=== PATIENT | female | born 1980 | race Two or more races ===

== ENCOUNTER 2025-08-10 13:53 | Emergency (ER) | payer MEDICAID, OTHER ==
[~2025-08-10] VITALS: Ht 175.3 cm; Wt 89.0 kg
[2025-08-10] MEDS: HYDROcodone-ACET 10/325MG TAB PO ONE (14:47)
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
[2025-08-10] MEDS: KETOROLAC TROMETH 60MG/2ML VIAL IM ONE (15:24)
[2025-08-10] MEDS ORDERED: PRED20TA2 PO (15:42)
[2025-08-10] MEDS ORDERED: HYDR-4798 PO (15:42)
[2025-08-10 15:47] VITALS: BP 123/75; PULSE 136; RESP 18; TEMP 97.8; O2SAT 95
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
== END 2025-08-10 15:49 | disposition home or self-care (01) ==
LOC: ER 13:53
DX: M54.42 Lumbago with sciatica, left side (principal); Z79.891 Long term (current) use of opiate analgesic; Z79.52 Long term (current) use of systemic steroids; V43.52XA Car driver injured in collision with other type car in traffic accident, initial encounter; Y93.89 Activity, other specified; Y92.488 Other paved roadways as the place of occurrence of the external cause; Y99.8 Other external cause status
CPT/HCPCS: 72100; 96372; 99283; J1885